=== PATIENT | male | born 1955 | race Caucasian/White ===

== ENCOUNTER 2022-11-15 07:34 | Outpatient (CLI) | payer MEDICARE ==
[~2022-11-15] VITALS: Ht 175.3 cm; Wt 102.1 kg
[~2022-11-15 07:34] MED LIST: ANTIVERT 25MG25 MG PO
[2022-11-15 09:17] VITALS: BP 156/86; PULSE 88; TEMP 98.4
[2022-11-15] MEDS ORDERED: PLAVIX 75MG TAB75 MG PO (09:21)
[2022-11-15] MEDS ORDERED: ARICEPT10 MG PO (09:21)
[2022-11-15] MEDS ORDERED: NEURONTIN300 MG/CAP PO (09:21)
[2022-11-15] MEDS ORDERED: ZYRTEC 10MG10 MG PO (09:21)
[2022-11-15] MEDS ORDERED: PLAQUENIL 200M200 MG PO (09:22)
[2022-11-15] MEDS ORDERED: COZAAR100 MG PO (09:22)
[2022-11-15] MEDS ORDERED: HCTZ 25MG TAB25 MG PO (09:22)
[2022-11-15] MEDS ORDERED: ANTIVERT 25MG25 MG PO (09:23)
[2022-11-15] MEDS ORDERED: MAG-OX 400400 MG/TAB PO (09:23)
[2022-11-15] MEDS ORDERED: GLUCOPHAGE500 MG/TAB PO (09:24)
[2022-11-15] MEDS ORDERED: CENTRUM SILVER1 CTB PO (09:24)
[2022-11-15] MEDS ORDERED: PROTONIX 40MG T40 MG PO (09:24)
[2022-11-15] MEDS ORDERED: MASON NATURAL1200 MG PO (09:24)
[2022-11-15] MEDS ORDERED: PREDNISONE20 MG PO (09:25)
[2022-11-15] MEDS ORDERED: CRESTOR40 MG PO (09:25)
[2022-11-15] MEDS ORDERED: VIAGRA50 M1 PO (09:26)
[2022-11-15] MEDS ORDERED: AZULFIDINE ENT500 MG PO (09:26)
[2022-11-15] MEDS ORDERED: FLOMAX 0.40.4 MG/CAP PO (09:26)
== END 2022-11-15 11:47 ==
LOC: EUO 07:34
DX: E83.42 Hypomagnesemia (principal)
CPT/HCPCS: J3475

== ENCOUNTER 2023-02-09 13:00 | Outpatient (RCR) | payer MEDICARE ==
[2023-01-19 14:15] VITALS: BP 113/59
[2023-01-19 14:30] VITALS: BP 117/64
[2023-01-19 15:00] VITALS: BP 123/63
[2023-01-19 15:09] VITALS: BP 123/63; PULSE 78; TEMP 98.5
[2023-01-19 15:30] VITALS: BP 124/62
[2023-01-26 14:08] VITALS: BP 132/73; PULSE 86; TEMP 98.6
[2023-01-26 14:30] VITALS: BP 133/96; PULSE 87
[2023-01-26 15:00] VITALS: BP 129/69; PULSE 89
[2023-01-26 15:30] VITALS: BP 141/75; PULSE 89
[2023-02-02 13:38] VITALS: BP 112/65; PULSE 82; TEMP 98.8
[2023-02-02 14:00] VITALS: BP 119/60; PULSE 71
[2023-02-02 14:30] VITALS: BP 118/63; PULSE 74
[2023-02-02 15:00] VITALS: BP 126/65; PULSE 72
[2023-02-02 15:30] VITALS: BP 136/70; PULSE 73
[~2023-02-09] VITALS: Ht 175.3 cm; Wt 103.4 kg
[2023-02-09 12:39] VITALS: BP 114/68; BP 115/68; PULSE 70; PULSE 79; TEMP 97.5
[~2023-02-09 13:00] MED LIST changes: +ARICEPT10 MG PO; +AZULFIDINE ENT500 MG PO; +BYSTOLIC5 MG PO; +CENTRUM SILVER1 CTB PO; +COZAAR100 MG PO; +CRESTOR40 MG PO; +FLOMAX 0.40.4 MG/CAP PO; +GLUCOPHAGE500 MG/TAB PO; +HCTZ 25MG TAB25 MG PO; +MAG-OX 400400 MG/TAB PO; +MASON NATURAL1200 MG PO; +MIDAMOR 5MG TAB5 MG PO; +NEURONTIN300 MG/CAP PO; +PLAQUENIL 200M200 MG PO; +PLAVIX 75MG TAB75 MG PO; +PREDNISONE20 MG PO; +PROTONIX 40MG T40 MG PO; +VIAGRA50 M1 PO; +ZYRTEC 10MG10 MG PO
[2023-02-09 13:15] VITALS: BP 106/60
[2023-02-09 13:45] VITALS: BP 121/60
[2023-02-09 14:15] VITALS: BP 106/56
[2023-02-09 14:45] VITALS: BP 121/61
[2023-02-09 15:15] VITALS: BP 128/62
[2023-03-08] MEDS ORDERED: ULTRAM 50MG TAB50 MG PO (09:35)
[2023-03-08] MEDS ORDERED: TYLENOL 500MG500 MG PO (09:35)
== END 2023-02-15 | disposition home or self-care (01) ==
LOC: EUO
DX: E83.42 Hypomagnesemia (principal)
CPT/HCPCS: J3475

== ENCOUNTER 2023-06-08 06:50 | Day surgery (SDC) | payer MEDICARE ==
[~2023-06-08] VITALS: Ht 170.2 cm; Wt 108.1 kg
[~2023-06-08 06:50] MED LIST changes: +TYLENOL 500MG500 MG PO; +ULTRAM 50MG TAB50 MG PO
[2023-06-08 07:49] VITALS: BP 161/83; PULSE 94; TEMP 97
[2023-06-08] MEDS ORDERED: FLOMAX 0.40.4 MG/CAP PO (08:02)
[2023-06-08 10:00] VITALS: BP 154/81; PULSE 99; TEMP 97
[2023-06-08 10:15] VITALS: BP 156/82; PULSE 91
[2023-06-08 10:30] VITALS: BP 141/84; PULSE 94
--- NOTE | 2023-06-08 11:08 | NUR ---
1000-PATIENT ARRIVED TO ENDO BAY 5 VIA CART, ALERT AND ORIENTED ON ARRIVAL. PATIENT AMBULATED WITH X2 ASSIST TO RECLINER, WARM BLANKET PROVIDED. VITAL SIGNS TAKEN, VSS. PATIENT DENIES PAIN OR NAUSEA. REPORT OBTAINED FROM [facility] CUELLAR. 1015-VSS. PATIENT TOLERATING PO INTAKE WELL, DENIES COMPLAINTS [id number]. CLARK AT BEDSIDE, PROCEDURE DISCUSSED AND QUESTIONS INVITED. DISCHARGE INSTRUCTIONS REVIEWED. 1051-IV CATHETER DISCONTINUED, TIP INTACT. PRESSURE BANDAGE APPLIED. PATIENT DRESSED INDEPENDENTLY. 1100-PATIENT DISCHARGED HOME TO [facility] VIA WHEELCHAIR, ACCOMPANIED BY SPOUSE. ALL BELONGINGS AND DC PAPERWORK SENT WITH PT.
== END 2023-06-08 11:00 | disposition home or self-care (01) ==
LOC: SDCO 06:50
DX: D12.3 Benign neoplasm of transverse colon (principal); K44.9 Diaphragmatic hernia without obstruction or gangrene; K22.70 Barrett's esophagus without dysplasia; K31.89 Other diseases of stomach and duodenum; K63.89 Other specified diseases of intestine; K29.50 Unspecified chronic gastritis without bleeding; K20.90 Esophagitis, unspecified without bleeding; G47.33 Obstructive sleep apnea (adult) (pediatric)
CPT/HCPCS: J2704; J7120

== ENCOUNTER 2024-04-03 09:33 | Outpatient (CLI) | payer MEDICARE ==
[~2024-04-03] VITALS: Ht 170.2 cm; Wt 105.3 kg
[~2024-04-03 09:33] MED LIST changes: +DULOXETINE HCL40 MG PO; +MASON NATURAL2000 IU PO; +PROBIOTIC BLEN1 EACH PO; +SLOW-MAG71.5 MG PO; +ZANAFLEX2 MG PO
[2024-04-03] MEDS ORDERED: Magnesium Sulfate 4 GM/50 ML IV SOLN IV ONE (09:45)
[2024-04-03] MEDS ORDERED: NS Flush 25 ML IV Bag IV ONE (09:45)
[2024-04-03 09:48] VITALS: BP 149/85; PULSE 94; TEMP 97.7
[2024-04-03] MEDS ORDERED: SYNTHROID0.05 MG/TA PO (09:57)
[2024-04-03] MEDS ORDERED: CRESTOR20 MG PO (09:59)
[2024-04-03 10:00] VITALS: BP 152/80; PULSE 95
[2024-04-03 10:30] VITALS: BP 135/78; PULSE 98
[2024-04-03 11:00] VITALS: BP 136/74; PULSE 92
[2024-04-03 11:30] VITALS: BP 148/84; PULSE 91
--- NOTE | 2024-04-03 12:05 | NUR ---
Pt tolerated infusion without issue. IV DC'd, site wrapped with coban. Pt up to restroom, gait steady. He is free of complaints at discharge.
== END 2024-04-03 12:05 | disposition home or self-care (01) ==
LOC: EUO 09:33
DX: E83.42 Hypomagnesemia (principal)
CPT/HCPCS: J3475